=== PATIENT | male | born 1990 | race Two or more races ===

== ENCOUNTER 2018-01-26 14:04 | Emergency (ER) | payer OTHER ==
--- NOTE | 2018-01-26 14:37 | UC ---
Cardiac HPI - HPI Summary HPI Summary: 27 y/o Estonian speaking male presents to the urgent care c/o left side anterior rib pain after being pushed by a cow against a pipe about 1 week ago/ Pt reports he was going to milk the cow when injury happened. Pain was severe at the beginning. He applied ice and has taken Tylenol and Naproxen PO which has helped. However pain is exacerbated w/ certain movements, deep breathing and cough. Pain is 8/10. Last dose of Naproxen PO was this morning. Pt denies SOB, fever, respiratory distress, abdominal pain, dizziness, N/V/D, CHARLES, URI. - History of Current Complaint Stated Complaint: LT RIB INJURY (WC) Time Seen by Provider: 01/26/18 14:35 Hx Obtained From: Patient Onset/Duration: Sudden Onset, Lasting Weeks - 1 week Timing: Constant Initial Severity: Severe Current Severity: Moderate Pain Intensity: 8 Chest Pain Location: Left Anterior - rib pain w/ a bruise Character: Sharp/Stabbing - w/ deep breathing and cough Aggravating Factor(s): Movement, Other - touch Alleviating Factor(s): Rest, OTC Meds Associated Signs & Symptoms: Positive: Swelling - mild and bruise which is now resolving. Negative: Chest Pain, Vision Changes, Recent Stress, Headaches, Numbness, Tingling, Fever, Diaphoresis, Nausea/Vomiting, Palpitations, Cough, Hemoptysis, Back Pain, Abdominal Pain - Risk Factors Pulmonary Embolism Risk Factors: Negative Cardiac Risk Factors: Negative Atrial Fibrillation: Negative TAD Risk Factors: Negative - Allergy/Home Medications Allergies/Adverse Reactions: Allergies Allergy/AdvReac Type Severity Reaction Status Date / Time No Known Allergies Allergy Verified 01/26/18 14:46 Home Medications: Home Medications Acetaminophen TAB* [Tylenol TAB*] 650 mg PO Q4H PRN 01/26/18 [History Confirmed 01/26/18] PMH/Surg Hx/FS Hx/Imm Hx Previously Healthy: Yes - Pt deneis pMHX - Family History Known Family History: Positive: Diabetes - Social History Occupation: Employed Full-time Lives: Alone Review of Systems All Other Systems Reviewed And Are Negative: Yes Constitutional: Positive: Negative Skin: Positive: Bruising - left anterior mid chest w/ mild swelling and bruise Eyes: Positive: Negative ENT: Positive: Negative Respiratory: Positive: Negative Cardiovascular: Positive: Negative Gastrointestinal: Positive: Negative Genitourinary: Positive: Negative Motor: Positive: Negative Neurovascular: Positive: Negative Musculoskeletal: Positive: Other: - mid anterior rib pain s/p injury Neurological: Positive: Negative Psychological: Positive: Negative Is Patient Immunocompromised?: No Physical Exam - Summary Physical Exam Summary: Vital Signs Reviewed: Yes General: well developed, well nourished male sitting in the examining table w/o any apparent distress Eyes: Positive: Conjunctiva Clear - PERRLA, EOMI, fundi grossly normal ENT: Positive: Normal ENT inspection, Hearing grossly normal, Pharynx normal, Nasal congestion - edematous and erythematous nasal mucosa, Nasal drainage - yellowish drainage, TMs normal. Negative: Tonsillar swelling, Tonsillar exudate Neck: Positive: Supple, Nontender, No Lymphadenopathy Respiratory: no orthopnea or dyspnea. Able to speak in full sentences, no retractions or accessory muscle use, no tripod position, stridor, or head bobbing. Positive breath sounds bilaterally. diffuse scattered wheezing and rhonchi on b/L lungs, no crackles or rales. Point tenderness over the mid anterior ribs 5-7 w/ mild swelling and discrete ecchymosis and bruising about 3.0cm x 2.0cm in size Cardiovascular: Positive: RRR, No Murmur, Pulses Normal, Brisk Capillary Refill Abdomen Description: Positive: Nontender, No Organomegaly, Soft. Negative: CVA Tenderness (R), CVA Tenderness (L) Bowel Sounds: Positive: Present Musculoskeletal Exam: Normal Musculoskeletal: Positive: Strength Intact, ROM Intact, No Edema Neurological Exam: Normal Psychological Exam: Normal Skin Exam: Normal Triage Information Reviewed: Yes - Assessment/Plan Course Of Treatment: 27 y/o Estonian speaking male presents to the urgent care c/ o left side anterior rib pain after being pushed by a cow against a pipe about 1 week ago/ Pt reports he was going to milk the cow when injury happened. Pain was severe at the beginning. He applied ice and has taken Tylenol and Naproxen PO which has helped. However pain is exacerbated w/ certain movements, deep breathing and cough. Pain is 8/10. Last dose of Naproxen PO was this morning. Pt denies SOB, fever, respiratory distress, abdominal pain, dizziness, N/V/D, CHARLES , URI. Hx obtained. I transalate since Pt only speaks Estonian. Pt is hemodynamically stable. Pt w/ Point tenderness over the mid anterior ribs 5-7 w / mild swelling and discrete ecchymosis and bruising about 3.0cm x 2.0cm in size on examination. LF Rib and Chest X-ray ordered to r/o fracture. Impression : Nondisplaced fracture of the lateral Rib 5, no pneumothorax or effusion observed. Pt given an Incentive Spirometer to improve lung function and avoid atelectasis. Nurse educated Pt on how to use it. Pt Rx Ibuprofen PO as directed belwo and advised to f/u w/ PCP for further management on her Rib fracture. Also advised to avoid strenuous exercise or heavy lifting. D/C instructions explained. Pt understood and agreed w/ plan of care. left clinic ambulating and hemodynamically stable. - Differential Diagnoses - Chest Pain Differential Diagnosis/HQI/PQRI: Acute IL, Angina, Chest Wall, Lower Respiratory Infection, Other: - rib fracture, rib contusion - Clinical Impression Provider Diagnosis: Left rib fracture, Rib pain on left side, Contusion of left chest wall Discharge - Sign-Out/Discharge Documenting (check all that apply): Patient Departure - D/c home All imaging exams completed and their final reports reviewed: Yes - Discharge Plan Condition: Stable Disposition: HOME Prescriptions: Ibuprofen TAB* [Motrin TAB* 800 MG] 800 mg PO Q6H PRN #30 tab PRN Reason: Pain Patient Education Materials: Rib Fracture (ED) Forms: *Work Release Referrals: [facility] [Outside] - 3 Days Additional Instructions: 1- Por favor tome el Ibuprofen PO cada 6-8hrs despues de las comidas para el dolor y la inflamacion. Evite ejercicios extremos or levantar cosas pesadas. 2- Use el Incentive Spirometro ayaan le explico la enfermera para mejor la funcion pulmonar 3- Si los simtomas no mejoran por favor jose raul brayan argenis con roberts Medico pimario para q le evaluen de nuevo. 1-Please take ibuprofen PO q6-8hrs prn as instructed after meals to alleviate pain and swelling. rest and avoid strenuous exercise or heavy lifting 2-Please use the Incentive Spirometry as the Nurse explained to improve lung function 3-If symptoms do not improve or worsen please f/u w/ your PCP in 3 days for further evaluation and treatment. - Billing Disposition and Condition Condition: STABLE Disposition: Home
[2018-01-26 14:46] VITALS: BP 126/64
== END 2018-01-26 15:49 | disposition home or self-care (01) ==
LOC: UCCORT 14:04
DX: S20.212A Contusion of left front wall of thorax, initial encounter (principal); S22.32XA Fracture of one rib, left side, initial encounter for closed fracture; Y93.K2 Activity, milking an animal; Y92.71 Barn as the place of occurrence of the external cause
CPT/HCPCS: 99202; G0463

== ENCOUNTER 2018-02-20 11:04 | Emergency (ER) | payer OTHER ==
[2018-02-20 11:49] VITALS: BP 122/66
--- NOTE | 2018-02-20 12:29 | UC ---
Truncal Trauma HPI - HPI Summary HPI Summary: left side / ribs pain x 3 weeks was kicked by a cow on 01/28/18 , had broken ribs on his left side was improving over the past 3 weeks, now having increase pain on the left side, increase pain with movements and breathing + sob, no cough, no fever, no chills - History Of Current Complaint Chief Complaint: UCGeneralIllness Stated Complaint: LEFT SIDE PAIN W/BREATHING Time Seen by Provider: 02/20/18 11:28 Hx Obtained From: Patient Onset/Duration: Gradual Onset, Lasting Weeks - 1, Still Present Onset Of Pain: Post Accident Severity Initially: Severe Severity Currently: Moderate Pain Intensity: 6 Mechanism Of Injury: Blunt Trauma - kicked by a cow Aggravating Factor(s): Movement, Deep Breathing, Cough Alleviating factor(s): Rest Associated Signs And Symptoms: Positive: SOB. Negative: Chest Pain, Cough, Hematuria, Abdominal Pain, Fever, Nausea, Vomiting - Allergies/Home Medications Allergies/Adverse Reactions: Allergies Allergy/AdvReac Type Severity Reaction Status Date / Time No Known Allergies Allergy Verified 02/20/18 11:26 PMH/Surg Hx/FS Hx/Imm Hx Previously Healthy: Yes - Surgical History Surgical History: None - Family History Known Family History: Positive: Diabetes - Social History Alcohol Use: Occasionally Substance Use Type: None Smoking Status (MU): Current Some Day Smoker Have You Smoked in the Last Year: Yes Review of Systems All Other Systems Reviewed And Are Negative: Yes Constitutional: Positive: Negative Skin: Positive: Negative Eyes: Positive: Negative ENT: Positive: Negative Respiratory: Positive: Shortness Of Breath Is Patient Immunocompromised?: No Physical Exam Triage Information Reviewed: Yes Appearance: Well-Appearing, Pain Distress Vital Signs: Initial Vital Signs Temp 98.9 F 02/20/18 11:28 Pulse 71 02/20/18 11:28 Resp 20 02/20/18 11:28 BP 122/66 02/20/18 11:28 Pulse Ox 100 02/20/18 11:28 Vital Signs Reviewed: Yes Eye Exam: Normal Eyes: Positive: Conjunctiva Clear ENT: Positive: Normal ENT inspection, Hearing grossly normal, Pharynx normal Neck: Positive: Supple, Nontender, No Lymphadenopathy Respiratory: Positive: Chest non-tender, Lungs clear, Normal breath sounds, Other: - tenderness left anterior lower ribs Cardiovascular: Positive: RRR, No Murmur, Pulses Normal Abdominal Exam: Normal Abdomen Description: Positive: Nontender, Soft Bowel Sounds: Positive: Present Skin Exam: Normal Diagnostics - Laboratory Diagnostic Studies Completed/Ordered: chest xray. IMPRESSION: No active cardiopulmonary disease is noted. Truncal Trauma Course/Dx - Differential Dx/Diagnosis Provider Diagnosis: Chest pain, pleuritic Discharge - Sign-Out/Discharge Documenting (check all that apply): Patient Departure All imaging exams completed and their final reports reviewed: Yes - Discharge Plan Condition: Stable Disposition: HOME Prescriptions: Naproxen [Naproxen 500 mg tab] 500 mg PO BID #20 tablet Patient Education Materials: Pleurisy (ED) Print Language: MACEDONIAN Referrals: No Primary Care Phys,NOPCP [Primary Care Provider] - 7 Days - Billing Disposition and Condition Condition: STABLE Disposition: Home
== END 2018-02-20 12:43 | disposition home or self-care (01) ==
LOC: UCCORT 11:04
DX: R07.81 Pleurodynia (principal); F17.210 Nicotine dependence, cigarettes, uncomplicated
CPT/HCPCS: 71046; 99212; G0463